=== PATIENT | female | born 1935 | race Caucasian/White ===

== ENCOUNTER 2022-02-21 21:09 | Inpatient (IN) | payer BC ==
[~2022-02-21] VITALS: Ht 165.1 cm; Wt 63.5 kg
[2022-02-21] MEDS ORDERED: CALC500T52 PO (21:57)
[2022-02-21] MEDS ORDERED: BISA10SU61 RC (21:57)
[2022-02-21] MEDS ORDERED: HYDR-3972 PO (21:57)
[2022-02-21] MEDS ORDERED: CHOL10005 PO (21:57)
[2022-02-21] MEDS ORDERED: PREG100C PO (21:57)
[2022-02-21] MEDS ORDERED: MAGN400O6 PO (21:57)
[2022-02-21] MEDS ORDERED: ATOR10TA PO (21:57)
[2022-02-21] MEDS ORDERED: DOCU100C36 PO (21:57)
[2022-02-21] MEDS ORDERED: APIX2.5T PO (21:57)
[2022-02-21] MEDS ORDERED: ASCO-375 PO (21:57)
[2022-02-21] MEDS ORDERED: MULT-1045 PO (21:57)
[2022-02-21] MEDS ORDERED: VIT1CAPS9 PO (21:57)
[2022-02-21] MEDS ORDERED: DULO60CA45 PO (21:57)
[2022-02-21] MEDS ORDERED: ACET-2154 PO (21:57)
[2022-02-21] MEDS ORDERED: FERR325T28 PO (21:57)
[2022-02-21] MEDS ORDERED: DIGO125T PO (21:57)
[2022-02-21] MEDS ORDERED: CRAN400T3 PO (21:57)
[2022-02-21] MEDS ORDERED: PANT40TA49 PO (21:57)
[2022-02-21] MEDS ORDERED: LEVO25TA9 PO (21:57)
[2022-02-21] MEDS ORDERED: PREG200C PO (21:57)
[2022-02-21 22:06] LABS: *BILIRUBIN,URIN NEGATIVE (NEGATIVE); *CLARITY,URINE CLEAR (CLEAR); *COLOR,URINE YELLOW (YELLOW); *KETONES,URINE NEGATIVE (NEGATIVE); *UROBILINOGEN,URINE 0.2 E.U./dl (NORMAL); LEUKOCYTE ESTERASE ,URINE NEGATIVE (NEGATIVE); NITRITE, URINE NEGATIVE (NEGATIVE); PH,URINE 5.5 (5.0-8.0); UGLUCOSE NEGATIVE (NEGATIVE)
[2022-02-21 22:07] LABS: *BLOOD, URINE NEGATIVE (NEGATIVE)
[2022-02-21 23:04] LABS: HEMATOCRIT 21.5 % (31.2-41.9); MEAN CORPUSCULAR HEMOGLOBIN 27.2 uug (24.7-32.8); MEAN CORPUSCULAR VOLUME 86.3 fL (75.5-95.3); PLATELET COUNT (AUTO) 405 K/uL (179-408)
[2022-02-21 23:14] LABS: CARBON DIOXIDE 32 mmol/L (21-32); CHLORIDE 106 mmol/L (98-107); CREATININE 0.8 mg/dL (0.6-1.3); GLUCOSE 192 mg/dL (74-106); POTASSIUM 3.4 mmol/L (3.5-5.1); UREA NITROGEN, BLOOD 29 mg/dL (7-18)
[2022-02-21 23:23] LABS: ALANINE AMINOTRANSFERASE 17 U/L (14-59); ALKALINE PHOSPHATASE 172 U/L (50-136); ASPARTATE AMINOTRANSFERASE 13 U/L (15-37); BILIRUBIN,DIRECT 0.2 mg/dL (0.0-0.2); BILIRUBIN,TOTAL 0.3 mg/dL (0.2-1.0); LIPASE 80 U/L (73-393); TOTAL PROTEIN, SERUM 5.8 g/dL (6.4-8.2)
[2022-02-21] MEDS ORDERED: SWABABLE VALVE TRANSFER SET EA MC ONE (23:50)
[2022-02-21] MEDS ORDERED: IV NORMAL SALINE 250 ML IV ONE (23:50)
[2022-02-21] MEDS ORDERED: IOHEXOL 300MG/ML 100 ML INFUS..BTL ONE (23:50)
[2022-02-22] MEDS ORDERED: METRONIDAZOLE 500 MG/NS 100 ML PIGGYBACK IV ONE (00:45)
[2022-02-22] MEDS ORDERED: PIPERACILLIN SODIUM/TAZOBACTAM 3.375 G in IV DEXTROSE 5% 50 ML IV ONE (00:45)
[2022-02-22] MEDS ORDERED: VANCOMYCIN 1G/D5W 200 ML PIGGYBACK IV ONE (00:45)
[2022-02-22] MEDS ORDERED: PIPERACILLIN/TAZOBACTAM/D5W 50 ML IV ONE (01:45)
[2022-02-22] MEDS ORDERED: VANCOMYCIN IV 200 ML ONE (01:45)
[2022-02-22] MEDS ORDERED: METRONIDAZOLE 500 MG/NS 100ML 100 ML IV ONE (01:46)
--- NOTE | 2022-02-22 02:30 | NUR ---
Daughter is at bedside with patient
[2022-02-22] MEDS ORDERED: HYDROCODONE/APAP 5-325MG TABLET PO PRN ×2 (02:45→09:00)
[2022-02-22] MEDS ORDERED: MAGNESIUM HYDROXIDE 30 ML LIQUID UDC PO PRN ×2 (02:45→09:00)
[2022-02-22] MEDS ORDERED: MORPHINE SULFATE 2 MG/1 ML DISP.SYRIN IV PRN (02:45)
[2022-02-22] MEDS ORDERED: ONDANSETRON 4 MG/2 ML VIAL IV PRN (02:45)
[2022-02-22] MEDS ORDERED: REMEDY ESSENTIAL ZINC PASTE 113 GM TP PRN (02:45)
--- NOTE | 2022-02-22 04:10 | NUR ---
Called third floor spoke to Afshan Charge nurse. Got room number placement. Stated patient will be placed in room #310.
--- NOTE | 2022-02-22 04:58 | NUR ---
Called [facility] for panel call.
[2022-02-22] MEDS ORDERED: MEROPENEM 1 G in IV NORMAL SALINE 100 ML IV ONE (05:00)
--- NOTE | 2022-02-22 06:36 | NUR ---
transferred pt. to tele dept. VSS at this time.
[2022-02-22] MEDS ORDERED: Medication Not On Formulary EA (Cholecalciferol (Vitamin D3) (Vitamin D3) 1 CAP) PO SCH (09:00)
[2022-02-22] MEDS ORDERED: PANTOPRAZOLE SODIUM 40 MG TABLET.DR PO SCH (09:00)
[2022-02-22] MEDS ORDERED: Medication Not On Formulary EA (Pregabalin (Lyrica) 200 MG) PO SCH (09:00)
[2022-02-22] MEDS ORDERED: ACETAMINOPHEN 325 MG TABLET-SA PATIENTS-PAIN ONLY PO PRN (09:00)
[2022-02-22] MEDS ORDERED: BISACODYL 10 MG SUPP.RECT RC PRN (09:00)
[2022-02-22] MEDS ORDERED: DIGOXIN 125 MCG TABLET PO ONE (09:30)
[2022-02-22] MEDS: DULOXETINE 60 MG CAPSULE.DR PO SCH (10:06)
[2022-02-22] MEDS: LEVOTHYROXINE SODIUM 25 MCG TABLET PO SCH (10:06)
[2022-02-22] MEDS: FERROUS SULFATE 325 MG TABEC PO SCH (10:06)
[2022-02-22] MEDS: DOCUSATE SODIUM 100 MG CAPSULE PO SCH (10:07)
[2022-02-22] MEDS: PANTOPRAZOLE SODIUM 40 MG TABLET.DR PO SCH (10:07)
[2022-02-22] MEDS: MEROPENEM 1 G in IV NORMAL SALINE 100 ML IV SCH ×2 (10:07→17:37)
[2022-02-22 11:50] VITALS: BP 126/52
[2022-02-22 13:10] LABS: HEMATOCRIT 25.9 % (31.2-41.9); MEAN CORPUSCULAR HEMOGLOBIN 27.6 uug (24.7-32.8); MEAN CORPUSCULAR VOLUME 87.2 fL (75.5-95.3); PLATELET COUNT (AUTO) 318 K/uL (179-408)
[2022-02-22] MEDS ORDERED: PROT30LI PO (14:26)
[2022-02-22] MEDS ORDERED: SODI100010 PO (14:26)
[2022-02-22 15:31] LABS: THYROID STIMULATING HORMONE 3.525 mIU/mL (0.358-3.740)
[2022-02-22 16:10] VITALS: BP 130/54
[2022-02-22] MEDS: IV NS 1000 ML 1,000 ML IV PRN (19:00)
[2022-02-22 20:00] VITALS: BP 109/49
[2022-02-22] MEDS: PREGABALIN 100 MG CAPSULE PO SCH (21:09)
[2022-02-22] MEDS: ACETAMINOPHEN 325 MG TABLET PO PRN (21:10)
[2022-02-23] MEDS: MEROPENEM 1 G in IV NORMAL SALINE 100 ML IV SCH ×3 (00:47→17:36)
--- NOTE | 2022-02-23 00:52 | NUR ---
Patient down grade from telemetry td to telemetry, per Len Byrne.
[2022-02-23] MEDS: VANCOMYCIN IV 1,000 MG in IV DEXTROSE 5% 250 ML IV SCH (02:54)
[2022-02-23 04:00] VITALS: BP 96/44
[2022-02-23] MEDS: PANTOPRAZOLE SODIUM 40 MG TABLET.DR PO SCH (05:55)
[2022-02-23] MEDS: LEVOTHYROXINE SODIUM 25 MCG TABLET PO SCH (05:56)
[2022-02-23 07:17] LABS: HEMATOCRIT 23.8 % (31.2-41.9); MEAN CORPUSCULAR HEMOGLOBIN 27.9 uug (24.7-32.8); MEAN CORPUSCULAR VOLUME 87.4 fL (75.5-95.3); PLATELET COUNT (AUTO) 305 K/uL (179-408)
[2022-02-23 07:18] LABS: BILIRUBIN,TOTAL 0.4 mg/dL (0.2-1.0); CREATININE 0.7 mg/dL (0.6-1.3); MAGNESIUM 1.5 mg/dL (1.8-2.4); PHOSPHOROUS 3.2 mg/dL (2.5-4.9); TOTAL PROTEIN, SERUM 5.2 g/dL (6.4-8.2)
[2022-02-23 09:06] LABS: A/G RATIO 0.3 (0.7-1.7); ALBUMIN 1.1 g/dL (2.9-4.4); ALPHA-1-GLOBULIN 0.5 g/dL (0.0-0.4); ALPHA-2-GLOBULIN 1.1 g/dL (0.4-1.0); BETA GLOBULIN 0.6 g/dL (0.7-1.3); GAMMA GLOBULIN 1.3 g/dL (0.4-1.8); GLOBULIN, TOTAL 3.5 g/dL (2.2-3.9); M-SPIKE 0.3 g/dL (Not Observed)
[2022-02-23] MEDS: FERROUS SULFATE 325 MG TABEC PO SCH (09:26)
[2022-02-23] MEDS: DOCUSATE SODIUM 100 MG CAPSULE PO SCH (09:26)
[2022-02-23] MEDS: DULOXETINE 60 MG CAPSULE.DR PO SCH (09:26)
[2022-02-23] MEDS: DIGOXIN 125 MCG TABLET PO SCH (09:27)
[2022-02-23] MEDS: CHOLECALCIFEROL 1,000 UNIT TABLET PO SCH (09:27)
[2022-02-23] MEDS: PREGABALIN 100 MG CAPSULE PO SCH ×2 (09:28→21:28)
[2022-02-23] MEDS ORDERED: POTASSIUM CHLORIDE 20 MEQ TAB.PRT.SR PO ONE (11:00)
[2022-02-23 11:30] VITALS: BP 110/42
[2022-02-23] MEDS: MAGNESIUM SULFATE/D5W 100 ML IV SCH ×2 (13:21→13:28)
[2022-02-23 16:14] VITALS: BP 113/48
[2022-02-23 20:45] VITALS: BP 100/38
[2022-02-24 00:35] VITALS: BP 95/38
[2022-02-24] MEDS: MEROPENEM 1 G in IV NORMAL SALINE 100 ML IV SCH ×3 (01:23→17:05)
[2022-02-24] MEDS: VANCOMYCIN IV 1,000 MG in IV DEXTROSE 5% 250 ML IV SCH (01:28)
[2022-02-24] MEDS: PANTOPRAZOLE SODIUM 40 MG TABLET.DR PO SCH (05:45)
[2022-02-24] MEDS: LEVOTHYROXINE SODIUM 25 MCG TABLET PO SCH (05:45)
[2022-02-24 05:49] VITALS: BP 91/40
[2022-02-24 07:54] LABS: CREATININE 0.7 mg/dL (0.6-1.3); MAGNESIUM 1.8 mg/dL (1.8-2.4); POTASSIUM 3.2 mmol/L (3.5-5.1)
[2022-02-24 08:00] VITALS: BP 117/66
[2022-02-24] MEDS: DULOXETINE 60 MG CAPSULE.DR PO SCH (10:14)
[2022-02-24] MEDS: PREGABALIN 100 MG CAPSULE PO SCH ×2 (10:14→20:54)
[2022-02-24] MEDS: DOCUSATE SODIUM 100 MG CAPSULE PO SCH (10:14)
[2022-02-24] MEDS: DIGOXIN 125 MCG TABLET PO SCH (10:16)
[2022-02-24] MEDS: CHOLECALCIFEROL 1,000 UNIT TABLET PO SCH (10:16)
[2022-02-24] MEDS ORDERED: POTASSIUM CHLORIDE 20 MEQ TAB.PRT.SR PO SCH (10:45)
[2022-02-24 12:00] VITALS: BP 111/47
[2022-02-24] MEDS: GLUCERNA SHAKE 237 ML CAN PO SCH ×2 (12:00→17:05)
[2022-02-24] MEDS: POTASSIUM CHLORIDE 20 MEQ TAB.PRT.SR PO SCH (13:00)
[2022-02-24 16:00] VITALS: BP 107/49
[2022-02-24] MEDS: ACETAMINOPHEN 325 MG TABLET PO PRN (17:05)
[2022-02-24 17:30] LABS: HEMATOCRIT 23.5 % (31.2-41.9); MEAN CORPUSCULAR HEMOGLOBIN 27.5 uug (24.7-32.8); MEAN CORPUSCULAR VOLUME 86.4 fL (75.5-95.3); PLATELET COUNT (AUTO) 309 K/uL (179-408)
[2022-02-25] VITALS (11 sets, daily range): BP systolic 106–130; BP diastolic 44–86
[2022-02-25] MEDS: MEROPENEM 1 G in IV NORMAL SALINE 100 ML IV SCH ×4 (01:37→23:48)
[2022-02-25] MEDS: LEVOTHYROXINE SODIUM 25 MCG TABLET PO SCH (05:33)
[2022-02-25] MEDS: VANCOMYCIN IV 1,000 MG in IV DEXTROSE 5% 250 ML IV SCH (05:33)
[2022-02-25] MEDS: PANTOPRAZOLE SODIUM 40 MG TABLET.DR PO SCH (05:34)
[2022-02-25 06:28] LABS: ABG BASE EXCESS 1.8 mmol/L; ABG HCO3 25.1 mmol/L; ABG PCO2 33.4 mmHg (35.0-45.0); ABG PH 7.493 (7.350-7.450); ABG PO2 89.1 mmHg (75.0-100.0); ABG SITE LEFT RADIAL; ABG TOTAL HEMOGLOBIN 7.8 G/dL (12.0-16.0); COHb 0.1 % (0.5-1.5); MetHb 0.4 % (0.0-1.5); O2Hb 96.5 % (94.0-97.0); VENT MODE Nasal Cannula
[2022-02-25 08:15] LABS: HEMATOCRIT 21.8 % (31.2-41.9); MEAN CORPUSCULAR HEMOGLOBIN 27.9 uug (24.7-32.8); MEAN CORPUSCULAR VOLUME 87.5 fL (75.5-95.3); PLATELET COUNT (AUTO) 263 K/uL (179-408)
[2022-02-25 08:30] LABS: BILIRUBIN,TOTAL 0.4 mg/dL (0.2-1.0); CREATININE 0.6 mg/dL (0.6-1.3); MAGNESIUM 1.8 mg/dL (1.8-2.4); PHOSPHOROUS 2.6 mg/dL (2.5-4.9); POTASSIUM 3.9 mmol/L (3.5-5.1)
[2022-02-25] MEDS: GLUCERNA SHAKE 237 ML CAN PO SCH ×3 (09:22→16:56)
[2022-02-25] MEDS: CHOLECALCIFEROL 1,000 UNIT TABLET PO SCH (09:24)
[2022-02-25] MEDS: DOCUSATE SODIUM 100 MG CAPSULE PO SCH (09:24)
[2022-02-25] MEDS: DIGOXIN 125 MCG TABLET PO SCH (09:24)
[2022-02-25] MEDS: DULOXETINE 60 MG CAPSULE.DR PO SCH (09:24)
[2022-02-25] MEDS: POTASSIUM CHLORIDE 20 MEQ TAB.PRT.SR PO SCH (09:35)
[2022-02-25] MEDS: PREGABALIN 100 MG CAPSULE PO SCH ×2 (09:35→20:37)
[2022-02-25] MEDS ORDERED: ALBUMIN HUMAN 25% 100 ML IV ONE ×2 (12:30→12:45)
[2022-02-25] MEDS ORDERED: FUROSEMIDE 20 MG/2 ML VIAL IV ONE ×2 (12:45→14:30)
[2022-02-25 15:35] LABS: EOSINOPHILS % (MANUAL) 1 % (0-8); LYMPHOCYTES % (MANUAL) 8 % (20-40); MONOCYTES % (MANUAL) 3 % (2-10); NEUTROPHILS % (MANUAL) 88 % (42-75)
[2022-02-25] MEDS: ACETAMINOPHEN 325 MG TABLET PO PRN (18:39)
[2022-02-25] MEDS: ACIDOPHILUS/BULGARICUS CHEW TAB PO SCH (20:36)
[2022-02-25 20:58] LABS: *BILIRUBIN,URIN NEGATIVE (NEGATIVE); *CLARITY,URINE CLEAR (CLEAR); *COLOR,URINE YELLOW (YELLOW); *KETONES,URINE NEGATIVE (NEGATIVE); *UROBILINOGEN,URINE 0.2 E.U./dl (NORMAL); LEUKOCYTE ESTERASE ,URINE NEGATIVE (NEGATIVE); NITRITE, URINE NEGATIVE (NEGATIVE); PH,URINE 5.5 (5.0-8.0); UGLUCOSE NEGATIVE (NEGATIVE)
[2022-02-25 21:09] LABS: *BLOOD, URINE TRACE (NEGATIVE)
[2022-02-25 21:16] LABS: BACTERIA,URINE FEW /HPF (NONE SEEN); SQUAMOUS EPITHELIAL CELL,UR FEW /HPF (NONE SEEN); YEAST,URINE MANY /HPF (NONE SEEN)
[2022-02-26 00:04] VITALS: BP 109/45
[2022-02-26] MEDS: VANCOMYCIN IV 1,000 MG in IV DEXTROSE 5% 250 ML IV SCH (02:00)
[2022-02-26 04:06] VITALS: BP 102/60
[2022-02-26] MEDS: PANTOPRAZOLE SODIUM 40 MG TABLET.DR PO SCH (05:45)
[2022-02-26] MEDS: LEVOTHYROXINE SODIUM 25 MCG TABLET PO SCH (05:45)
[2022-02-26 07:19] LABS: HEMATOCRIT 26.4 % (31.2-41.9); MEAN CORPUSCULAR HEMOGLOBIN 28.4 uug (24.7-32.8); MEAN CORPUSCULAR VOLUME 87.5 fL (75.5-95.3); PLATELET COUNT (AUTO) 227 K/uL (179-408)
[2022-02-26 07:35] LABS: BILIRUBIN,TOTAL 0.5 mg/dL (0.2-1.0); CREATININE 0.6 mg/dL (0.6-1.3); DIGOXIN 1.3 ng/mL (0.9-2.0); MAGNESIUM 1.6 mg/dL (1.8-2.4); PHOSPHOROUS 2.7 mg/dL (2.5-4.9); POTASSIUM 3.6 mmol/L (3.5-5.1)
[2022-02-26] MEDS: FUROSEMIDE 20 MG/2 ML VIAL IV SCH (08:35)
[2022-02-26] MEDS: MEROPENEM 1 G in IV NORMAL SALINE 100 ML IV SCH ×2 (08:35→15:03)
[2022-02-26] MEDS: DULOXETINE 60 MG CAPSULE.DR PO SCH (08:36)
[2022-02-26] MEDS: DOCUSATE SODIUM 100 MG CAPSULE PO SCH (08:36)
[2022-02-26] MEDS: ACIDOPHILUS/BULGARICUS CHEW TAB PO SCH ×2 (08:36→20:39)
[2022-02-26] MEDS: CHOLECALCIFEROL 1,000 UNIT TABLET PO SCH (08:36)
[2022-02-26] MEDS: POTASSIUM CHLORIDE 20 MEQ TAB.PRT.SR PO SCH (08:36)
[2022-02-26] MEDS: DIGOXIN 125 MCG TABLET PO SCH (08:37)
[2022-02-26] MEDS: PREGABALIN 100 MG CAPSULE PO SCH ×2 (08:37→20:40)
[2022-02-26] MEDS: GLUCERNA SHAKE 237 ML CAN PO SCH ×3 (08:38→17:10)
[2022-02-26] MEDS: FLUCONAZOLE 200 MG/NS 100ML IV 100 MG in PREMIXED 1 EACH IV SCH (10:07)
[2022-02-26 11:37] VITALS: BP 107/35
[2022-02-26] MEDS: IV NS 1000 ML 1,000 ML IV PRN (13:48)
[2022-02-26] MEDS: ACETAMINOPHEN 325 MG TABLET PO PRN (14:47)
[2022-02-26 15:41] VITALS: BP 117/48
--- NOTE | 2022-02-26 20:20 | NUR ---
Patient alert awake no sob no chest pain, sinus rhythm sinus tachy on tele, no complain of pain, with generalized edema noted, kept both arms elevated with pillow, cont to monitor.
[2022-02-26 21:02] VITALS: BP 107/41
[2022-02-26] MEDS ORDERED: CEFTRIAXONE /D5W 50ML IVPB **ER PYXIS IV ONE (23:34)
[2022-02-26] MEDS: CEFTRIAXONE 1 G in IV DEXTROSE 5% 50 ML IV SCH (23:50)
[2022-02-27 00:09] VITALS: BP 98/42
[2022-02-27 04:11] VITALS: BP 106/41
[2022-02-27] MEDS: METRONIDAZOLE 500 MG TABLET PO SCH ×3 (05:09→21:23)
[2022-02-27] MEDS: PANTOPRAZOLE SODIUM 40 MG TABLET.DR PO SCH (06:19)
[2022-02-27] MEDS: LEVOTHYROXINE SODIUM 25 MCG TABLET PO SCH (06:19)
--- NOTE | 2022-02-27 07:02 | NUR ---
Patient alert oriented, no sob no chest pain, sinus rhythm sinus tachy on tele, denies pain, still generalized edema noted, kept clean and dry and comfortable, seen by ID GRADUATE ASSISTANT ATHLETIC TRAINER with order, cont to monitor.
[2022-02-27 07:26] LABS: HEMATOCRIT 24.8 % (31.2-41.9); MEAN CORPUSCULAR HEMOGLOBIN 28.6 uug (24.7-32.8); MEAN CORPUSCULAR VOLUME 87.7 fL (75.5-95.3); PLATELET COUNT (AUTO) 205 K/uL (179-408)
[2022-02-27 07:54] LABS: BILIRUBIN,TOTAL 0.4 mg/dL (0.2-1.0); CREATININE 0.6 mg/dL (0.6-1.3); MAGNESIUM 1.5 mg/dL (1.8-2.4); PHOSPHOROUS 2.7 mg/dL (2.5-4.9); POTASSIUM 3.5 mmol/L (3.5-5.1); TOTAL PROTEIN, SERUM 4.8 g/dL (6.4-8.2)
[2022-02-27] MEDS: POTASSIUM CHLORIDE 20 MEQ TAB.PRT.SR PO SCH (09:40)
[2022-02-27] MEDS: ACIDOPHILUS/BULGARICUS CHEW TAB PO SCH ×2 (09:40→20:30)
[2022-02-27] MEDS: PREGABALIN 100 MG CAPSULE PO SCH ×2 (09:40→20:30)
[2022-02-27] MEDS: CHOLECALCIFEROL 1,000 UNIT TABLET PO SCH (09:40)
[2022-02-27] MEDS: DULOXETINE 60 MG CAPSULE.DR PO SCH (09:40)
[2022-02-27] MEDS: FUROSEMIDE 20 MG/2 ML VIAL IV SCH (09:40)
[2022-02-27] MEDS: DIGOXIN 125 MCG TABLET PO SCH (09:40)
[2022-02-27] MEDS: GLUCERNA SHAKE 237 ML CAN PO SCH ×3 (09:41→19:00)
[2022-02-27] MEDS: DOCUSATE SODIUM 100 MG CAPSULE PO SCH (09:41)
[2022-02-27] MEDS: FLUCONAZOLE 200 MG/NS 100ML IV 100 MG in PREMIXED 1 EACH IV SCH (09:45)
[2022-02-27 12:00] VITALS: BP 94/45
[2022-02-27 16:00] VITALS: BP 93/42
[2022-02-27] MEDS: MAGNESIUM SULFATE/D5W 100 ML IV SCH (19:00)
--- NOTE | 2022-02-27 19:51 | NUR ---
Patient has 2 bags of empty Magnesium IV bag noted at IV pole.
[2022-02-27 20:00] VITALS: BP 106/37
[2022-02-27] MEDS: ACETAMINOPHEN 325 MG TABLET PO PRN (20:30)
[2022-02-27] MEDS: IV NS 1000 ML 1,000 ML IV PRN (20:31)
--- NOTE | 2022-02-27 20:50 | NUR ---
Patient has elevated temp 100.4 , Janice Commercial Analyst was notified with order of blood culture x2, patient given tylenol 650mg po plus cooling measures, cont to monitor.
--- NOTE | 2022-02-27 22:15 | NUR ---
recheck temp 97.8 oral, no sob no chest pain, noted with moist cough, kept hob elevated cont to monitor.
[2022-02-28] VITALS: BP 94/43
[2022-02-28] MEDS: CEFTRIAXONE 1 G in IV DEXTROSE 5% 50 ML IV SCH ×2 (00:04→22:01)
[2022-02-28 04:00] VITALS: BP 100/44
[2022-02-28] MEDS: METRONIDAZOLE 500 MG TABLET PO SCH ×3 (05:05→21:23)
[2022-02-28] MEDS: PANTOPRAZOLE SODIUM 40 MG TABLET.DR PO SCH (06:01)
[2022-02-28] MEDS: LEVOTHYROXINE SODIUM 25 MCG TABLET PO SCH (06:01)
--- NOTE | 2022-02-28 07:31 | NUR ---
Patient awake alert no sob no chest pain, sinus tachy, no complain of pain, still has moist cough, afebrile,endorse to get ST eval, no sis of distress. cont to monitor.
[2022-02-28] MEDS: GLUCERNA SHAKE 237 ML CAN PO SCH ×3 (08:00→17:00)
[2022-02-28 08:03] LABS: HEMATOCRIT 26.6 % (31.2-41.9); MEAN CORPUSCULAR HEMOGLOBIN 28.2 uug (24.7-32.8); MEAN CORPUSCULAR VOLUME 87.7 fL (75.5-95.3); PLATELET COUNT (AUTO) 201 K/uL (179-408)
[2022-02-28] MEDS: DIGOXIN 125 MCG TABLET PO SCH (10:23)
[2022-02-28] MEDS: FUROSEMIDE 20 MG/2 ML VIAL IV SCH (10:23)
[2022-02-28] MEDS: DOCUSATE SODIUM 100 MG CAPSULE PO SCH (10:24)
[2022-02-28] MEDS: PREGABALIN 100 MG CAPSULE PO SCH ×2 (10:24→21:23)
[2022-02-28] MEDS: ACIDOPHILUS/BULGARICUS CHEW TAB PO SCH ×2 (10:24→21:24)
[2022-02-28] MEDS: IV NS 1000 ML 1,000 ML IV PRN (10:26)
[2022-02-28] MEDS: POTASSIUM CHLORIDE 20 MEQ TAB.PRT.SR PO SCH (10:26)
[2022-02-28] MEDS: FLUCONAZOLE 200 MG/NS 100ML IV 100 MG in PREMIXED 1 EACH IV SCH (10:27)
[2022-02-28] MEDS: CHOLECALCIFEROL 1,000 UNIT TABLET PO SCH (10:27)
[2022-02-28] MEDS: DULOXETINE 60 MG CAPSULE.DR PO SCH (10:27)
[2022-02-28 11:39] VITALS: BP 104/43
--- NOTE | 2022-02-28 16:11 | NUR ---
PT TOLERATES THICKENED LIQUIDS BETTER THAN REGULAR LIQUIDS
[2022-02-28 16:21] VITALS: BP 101/46
--- NOTE | 2022-02-28 18:51 | NUR ---
SPOKE WITH DR. AHMADI REGARDING CONCERNS OF PT ASPIRATING, PT IS WEAK, POOR PO INTAKE. SPEECH AND SWALLOW EVAL TO BE DONE.
--- NOTE | 2022-02-28 19:00 | NUR ---
RECEIVED REPORT FROM CARYN RYAN.
[2022-02-28 20:00] VITALS: BP 113/46
[2022-02-28] MEDS ORDERED: IV NORMAL SALINE 500 ML IV ONE ×2 (22:54→23:00)
--- NOTE | 2022-02-28 23:00 | NUR ---
PATIENT HR WAS 130, MORPHINE 2 MG WAS GIVEN IV AND ANG COPY WORKER MADE AWARE, NEW ORDER GIVEN TO GIVE NS 500 ML BOLUS, BOLUS GIVEN, HR 125 AT THIS TIME, WILL CONTINUE TO MONITOR.
[2022-03-01] VITALS: BP 115/51
--- NOTE | 2022-03-01 00:49 | NUR ---
RECEIVED REPORT FROM CARYN RYAN.
[2022-03-01 04:00] VITALS: BP 121/59
[2022-03-01] MEDS: METRONIDAZOLE 500 MG TABLET PO SCH ×4 (06:37→22:00)
[2022-03-01] MEDS: LEVOTHYROXINE SODIUM 25 MCG TABLET PO SCH (06:37)
[2022-03-01] MEDS: PANTOPRAZOLE SODIUM 40 MG TABLET.DR PO SCH (06:37)
--- NOTE | 2022-03-01 07:18 | NUR ---
REPORT GIVEN TO CARYN RYAN.
[2022-03-01] MEDS: GLUCERNA SHAKE 237 ML CAN PO SCH ×3 (08:00→17:21)
[2022-03-01] MEDS: FLUCONAZOLE 200 MG/NS 100ML IV 100 MG in PREMIXED 1 EACH IV SCH (09:15)
[2022-03-01] MEDS: IV NS 1000 ML 1,000 ML IV PRN ×2 (09:16→22:53)
[2022-03-01] MEDS: DOCUSATE SODIUM 100 MG CAPSULE PO SCH (09:19)
[2022-03-01] MEDS: POTASSIUM CHLORIDE 20 MEQ TAB.PRT.SR PO SCH (09:19)
[2022-03-01] MEDS: DULOXETINE 60 MG CAPSULE.DR PO SCH (09:19)
[2022-03-01] MEDS: ACIDOPHILUS/BULGARICUS CHEW TAB PO SCH ×3 (09:19→21:35)
[2022-03-01] MEDS: PREGABALIN 100 MG CAPSULE PO SCH ×3 (09:19→21:35)
[2022-03-01] MEDS: DIGOXIN 125 MCG TABLET PO SCH (09:19)
[2022-03-01] MEDS: CHOLECALCIFEROL 1,000 UNIT TABLET PO SCH (09:19)
[2022-03-01] MEDS: FUROSEMIDE 20 MG/2 ML VIAL IV SCH (09:20)
[2022-03-01 11:01] VITALS: BP 111/45
--- NOTE | 2022-03-01 11:12 | NUR ---
WOUND CARE CONSULT: PT SEEN FOR SKIN ASSESSMENT AND NOTED TO HAVE PROFOUND GENERALIZED EDEMA, LEFT HEEL BROWN DISCOLORATION/SCAR AND ABDOMINAL SCARRING, PRESENT ON ADMISSION. RT THIGH NOTED TO HAVE EDEMA WITH MOISTURE ASSOCIATED OPEN SKIN. RECOMMENDATIONS MADE FOR SKIN PROTECTION. DISCUSSED WITH NURSING STAFF. DOCUMENTATION FROM SENDING FACILITY INDICATES PRESSURE ULCER TO LEFT HEEL. FIRST STEP LOW AIRLOSS MATTRESS ORDERED. MD IN AGREEMENT WITH PLAN OF CARE.
[2022-03-01 13:06] LABS: BETA-2 MICROGLOBULIN, SERUM 4.9 mg/L (0.6-2.4)
--- NOTE | 2022-03-01 13:28 | NUR ---
spoke to Dr. Lopes regarding pts HR sustained 120's - 130's 500 cc bolus ordered pain medication to be given.
[2022-03-01] MEDS ORDERED: IV NORMAL SALINE 500 ML IV ONE (13:30)
[2022-03-01 15:27] VITALS: BP 114/38
[2022-03-01 15:51] VITALS: BP 114/38
[2022-03-01 20:00] VITALS: BP 106/32
--- NOTE | 2022-03-01 22:00 | NUR ---
Pt is lethargic. Unable to administer PO meds: Flagyl , Floranex, Lyrica.
--- NOTE | 2022-03-01 22:15 | NUR ---
Heart rate is sustaining at 150-156. Morphine given as ordered. Dr. Lopes is aware. Received order to change Morphine to Dilaudid.
[2022-03-01] MEDS: CEFTRIAXONE 1 G in IV DEXTROSE 5% 50 ML IV SCH (22:52)
--- NOTE | 2022-03-01 23:30 | NUR ---
Blood culture result received. made aware. Received order for Vancomycin.
[2022-03-01] MEDS: HYDROMORPHONE 1 MG/1 ML DISP.SYRIN IV PRN (23:36)
[2022-03-02] VITALS: BP_SYST 112; BP_SYST 131; BP_DIAS 47; BP_DIAS 54
[2022-03-02] MEDS ORDERED: VANCOMYCIN IV 1,000 MG in IV DEXTROSE 5% 250 ML IV SCH ×2
[2022-03-02] MEDS ORDERED: VANCOMYCIN IV 200 ML ONE (00:13)
[2022-03-02 02:16] LABS: HEMATOCRIT 22.4 % (31.2-41.9); MEAN CORPUSCULAR HEMOGLOBIN 28.8 uug (24.7-32.8); MEAN CORPUSCULAR VOLUME 88.1 fL (75.5-95.3); PLATELET COUNT (AUTO) 164 K/uL (179-408)
[2022-03-02 02:24] LABS: CREATININE 0.6 mg/dL (0.6-1.3); MAGNESIUM 1.6 mg/dL (1.8-2.4); PHOSPHOROUS 3.5 mg/dL (2.5-4.9); POTASSIUM 3.7 mmol/L (3.5-5.1)
--- NOTE | 2022-03-02 02:30 | NUR ---
Hgb 7.3. Gisel RESEARCH ANTHROPOLOGIST notified. VS 93/45, 140, RR 14, 98.7, O2 at 3LPM sating at 93%. Received order for ABG.
[2022-03-02 03:27] LABS: ABG BASE EXCESS 3.4 mmol/L; ABG HCO3 27.6 mmol/L; ABG PCO2 40.6 mmHg (35.0-45.0); ABG PH 7.451 (7.350-7.450); ABG PO2 64.7 mmHg (75.0-100.0); ABG SITE LEFT RADIAL; ABG TOTAL HEMOGLOBIN 9.3 G/dL (12.0-16.0); COHb 0.3 % (0.5-1.5); MetHb 0.2 % (0.0-1.5); O2Hb 92.3 % (94.0-97.0); VENT MODE Nasal Cannula
--- NOTE | 2022-03-02 03:56 | NUR ---
Spoke to LY daughter Kalyani on the phone, requested for code status to be changed to DNR. 2 RNs verified. Gisel PEER COUNSELOR notified.
[2022-03-02] MEDS: METRONIDAZOLE 500 MG TABLET PO SCH ×3 (06:00→23:12)
[2022-03-02] MEDS: PANTOPRAZOLE SODIUM 40 MG TABLET.DR PO SCH (06:06)
[2022-03-02] MEDS: LEVOTHYROXINE SODIUM 25 MCG TABLET PO SCH (06:08)
[2022-03-02] MEDS: GLUCERNA SHAKE 237 ML CAN PO SCH ×3 (08:00→17:00)
[2022-03-02] MEDS: DULOXETINE 60 MG CAPSULE.DR PO SCH (09:00)
[2022-03-02] MEDS: PREGABALIN 100 MG CAPSULE PO SCH ×2 (09:00→20:23)
[2022-03-02] MEDS: DOCUSATE SODIUM 100 MG CAPSULE PO SCH (09:00)
[2022-03-02] MEDS: POTASSIUM CHLORIDE 20 MEQ TAB.PRT.SR PO SCH (09:00)
[2022-03-02] MEDS: ACIDOPHILUS/BULGARICUS CHEW TAB PO SCH ×2 (09:00→20:23)
[2022-03-02] MEDS: CHOLECALCIFEROL 1,000 UNIT TABLET PO SCH (09:00)
[2022-03-02] MEDS: FLUCONAZOLE 200 MG/NS 100ML IV 100 MG in PREMIXED 1 EACH IV SCH (09:12)
[2022-03-02] MEDS: DIGOXIN 125 MCG TABLET PO SCH (09:15)
[2022-03-02] MEDS: FUROSEMIDE 20 MG/2 ML VIAL IV SCH (09:18)
[2022-03-02] MEDS: MAGNESIUM SULFATE/D5W 100 ML IV SCH ×2 (11:25→11:31)
[2022-03-02 11:52] VITALS: BP 111/50
[2022-03-02 12:06] LABS: *ALPHA-1-GLOBULIN, 24 5.4 % (.); *ALPHA-2-GLOBULIN, U24 23.9 % (.); *BETA GLOBULIN,24 19.1 % (.); *PEU ALBUMIN, 24 27.8 % (.); *PEUGAMMA GLOBULIN, 24 23.7 % (.); *PROTEIN, TOTAL, UR 24 HR 42.1 mg/dL (Not Estab.)
[2022-03-02 15:55] VITALS: BP 116/45
[2022-03-02] MEDS: IV NS 1000 ML 1,000 ML IV PRN (18:47)
[2022-03-02 20:00] VITALS: BP 106/34
[2022-03-02] MEDS: CEFTRIAXONE 1 G in IV DEXTROSE 5% 50 ML IV SCH (23:14)
[2022-03-03] VITALS: BP 111/34
[2022-03-03] MEDS: VANCOMYCIN IV 1,000 MG in IV DEXTROSE 5% 250 ML IV SCH (01:06)
[2022-03-03 04:00] VITALS: BP 125/85
[2022-03-03] MEDS: METRONIDAZOLE 500 MG TABLET PO SCH ×3 (06:24→21:00)
[2022-03-03] MEDS: LEVOTHYROXINE SODIUM 25 MCG TABLET PO SCH (06:25)
[2022-03-03] MEDS: PANTOPRAZOLE SODIUM 40 MG TABLET.DR PO SCH (06:25)
--- NOTE | 2022-03-03 06:50 | NUR ---
Slept intermittently. Pt is more awake. Pt was able to tolerate PO medications crushed with apple sauce. Aspiration precaution observed. No aspiration noted. Will endorse to incoming nurse.
[2022-03-03 07:45] LABS: CREATININE 0.6 mg/dL (0.6-1.3); MAGNESIUM 2.1 mg/dL (1.8-2.4)
[2022-03-03] MEDS: DULOXETINE 60 MG CAPSULE.DR PO SCH (09:15)
[2022-03-03] MEDS: POTASSIUM CHLORIDE 20 MEQ TAB.PRT.SR PO SCH (09:15)
[2022-03-03] MEDS: PREGABALIN 100 MG CAPSULE PO SCH ×2 (09:15→20:57)
[2022-03-03] MEDS: ACIDOPHILUS/BULGARICUS CHEW TAB PO SCH ×2 (09:15→20:57)
[2022-03-03] MEDS: CHOLECALCIFEROL 1,000 UNIT TABLET PO SCH (09:16)
[2022-03-03] MEDS: DIGOXIN 125 MCG TABLET PO SCH (09:16)
[2022-03-03] MEDS: GLUCERNA SHAKE 237 ML CAN PO SCH ×3 (09:17→17:28)
[2022-03-03] MEDS: FLUCONAZOLE 200 MG/NS 100ML IV 100 MG in PREMIXED 1 EACH IV SCH (09:17)
[2022-03-03] MEDS: FUROSEMIDE 20 MG/2 ML VIAL IV SCH (09:18)
[2022-03-03] MEDS: DOCUSATE SODIUM 100 MG CAPSULE PO SCH (09:18)
[2022-03-03 11:59] VITALS: BP 110/34
[2022-03-03] MEDS: POTASSIUM CHLORIDE 10 MEQ TAB.PRT.SR PO SCH ×2 (12:15→16:05)
[2022-03-03] MEDS: ACETAMINOPHEN 325 MG TABLET PO PRN (12:15)
[2022-03-03] MEDS: IV NS 1000 ML 1,000 ML IV PRN (12:33)
[2022-03-03 16:13] VITALS: BP 118/44
--- NOTE | 2022-03-03 19:35 | NUR ---
Patient asleep but arousable, no complain of pain, no s/s of sob/no s/s of chest pain, noted with moist cough, with generalized edema, cont on abx for infection, kept arms and leg elevated with pillow, kept comfortable, sinus rhythm sinus tachy, cont to monitor.
[2022-03-03 21:19] VITALS: BP 109/45
[2022-03-03] MEDS: CEFTRIAXONE 1 G in IV DEXTROSE 5% 50 ML IV SCH (23:56)
[2022-03-04 01:00] VITALS: BP 110/45
[2022-03-04] MEDS: VANCOMYCIN IV 1,000 MG in IV DEXTROSE 5% 250 ML IV SCH (02:01)
[2022-03-04] MEDS: HYDROMORPHONE 1 MG/1 ML DISP.SYRIN IV PRN (03:08)
--- NOTE | 2022-03-04 03:11 | NUR ---
Patient moaning, heart rate elevated, given Dilaudid 1mg via for comfort and pain, cont to monitor.
[2022-03-04] MEDS: PANTOPRAZOLE SODIUM 40 MG TABLET.DR PO SCH (06:24)
[2022-03-04] MEDS: LEVOTHYROXINE SODIUM 25 MCG TABLET PO SCH (06:24)
[2022-03-04] MEDS: METRONIDAZOLE 500 MG TABLET PO SCH ×2 (06:24→14:55)
[2022-03-04 06:37] VITALS: BP 105/45
--- NOTE | 2022-03-04 07:04 | NUR ---
Patient asleep but arousable, no s/s of pain nor discomfort at this time, still with moist cough, rendered good oral care, still with generalized edema, kept both arms elevated with pillow, rendered good pk care had small BM, sinus rythm sinus tachy on tele, kept clean dry and comfortable, cont to monitor.
[2022-03-04 07:44] LABS: CREATININE 0.6 mg/dL (0.6-1.3); POTASSIUM 3.9 mmol/L (3.5-5.1)
[2022-03-04 08:58] LABS: HEMATOCRIT 22.3 % (31.2-41.9); MEAN CORPUSCULAR HEMOGLOBIN 27.7 uug (24.7-32.8); MEAN CORPUSCULAR VOLUME 88.7 fL (75.5-95.3); PLATELET COUNT (AUTO) 158 K/uL (179-408)
--- NOTE | 2022-03-04 09:00 | NUR ---
TURNED AND REPOSITIONED Q2H GENERALISED EDEMA ALL NEEDS ANTICIPATED AND SATISFIED IVF ORDERED POOR ORAL INTAKE O2 IN PROGRESS WITH NO SOB AT THIS TIME WILL CONTINUE TO OBSERVE.
[2022-03-04] MEDS: FUROSEMIDE 20 MG/2 ML VIAL IV SCH (09:11)
[2022-03-04] MEDS: PREGABALIN 100 MG CAPSULE PO SCH (09:12)
[2022-03-04] MEDS: CHOLECALCIFEROL 1,000 UNIT TABLET PO SCH (09:12)
[2022-03-04] MEDS: DULOXETINE 60 MG CAPSULE.DR PO SCH (09:12)
[2022-03-04] MEDS: ACIDOPHILUS/BULGARICUS CHEW TAB PO SCH (09:12)
[2022-03-04] MEDS: POTASSIUM CHLORIDE 20 MEQ TAB.PRT.SR PO SCH (09:12)
[2022-03-04] MEDS: DOCUSATE SODIUM 100 MG CAPSULE PO SCH (09:13)
[2022-03-04] MEDS: FLUCONAZOLE 200 MG/NS 100ML IV 100 MG in PREMIXED 1 EACH IV SCH (09:14)
[2022-03-04] MEDS: DIGOXIN 125 MCG TABLET PO SCH (09:15)
[2022-03-04] MEDS: GLUCERNA SHAKE 237 ML CAN PO SCH ×3 (09:16→17:00)
--- NOTE | 2022-03-04 11:00 | NUR ---
PER THE SENIOR RISK ANALYST [facility] FOR HOSPICE HAS BEEN INITIATED AND SENT YESTERDAY.
[2022-03-04 12:00] VITALS: BP 99/39
[2022-03-04 16:36] VITALS: BP 106/48
--- NOTE | 2022-03-04 17:58 | NUR ---
[facility] HERE SEEN PATIENT WITH ORDERS PATIENT WILL BE DISCHARGED FROM [facility] AND WILL BE CONVERTED TO HOSPICE DR AHMADI NOTIFIED AND HE STATED WILL DO THE DISCHARGE.
[2022-03-04] MEDS ORDERED: LORAZEPAM 2 MG/1 ML VIAL IV PRN (18:15)
--- NOTE | 2022-03-04 18:18 | NUR ---
TELEMETRY REMOVED IVF STOPPED ORDERED AWAITING FOR DISCHARGE ORDER IN [facility] TO CONVERT PATIENT TO HOSPICE.
== END 2022-03-04 21:30 | disposition hospice, inpatient (51) | DRG 871 ==
LOC: ER 21:09 → TELE3 02-22 04:40 → TELE-TD3 02-23 00:38 → TELE3 02-23 00:50
PROVIDERS: ADMIT Internal Medicine; ATTEND Internal Medicine
PROC: 30233N1 Transfusion of Nonautologous Red Blood Cells into Peripheral Vein, Percutaneous Approach (ICD-10-PCS; principal; 2022-02-22)
PROC: 05H533Z Insertion of Infusion Device into Right Subclavian Vein, Percutaneous Approach (ICD-10-PCS; 2022-02-22)
PROC: B546ZZA Ultrasonography of Right Subclavian Vein, Guidance (ICD-10-PCS; 2022-02-22)
DX: A41.9 Sepsis, unspecified organism (principal); E43 Unspecified severe protein-calorie malnutrition; G92.8 Other toxic encephalopathy; J18.9 Pneumonia, unspecified organism; J96.01 Acute respiratory failure with hypoxia; J98.11 Atelectasis; D68.69 Other thrombophilia; B37.49 Other urogenital candidiasis; C49.4 Malignant neoplasm of connective and soft tissue of abdomen; J90 Pleural effusion, not elsewhere classified; R19.00 Intra-abdominal and pelvic swelling, mass and lump, unspecified site; D47.2 Monoclonal gammopathy; D64.9 Anemia, unspecified; D75.839 Thrombocytosis, unspecified; E03.9 Hypothyroidism, unspecified; E78.5 Hyperlipidemia, unspecified; E87.6 Hypokalemia; E88.09 Other disorders of plasma-protein metabolism, not elsewhere classified; G62.9 Polyneuropathy, unspecified; K56.41 Fecal impaction; Z20.822 Contact with and (suspected) exposure to COVID-19; K52.89 Other specified noninfective gastroenteritis and colitis; M19.90 Unspecified osteoarthritis, unspecified site; R73.9 Hyperglycemia, unspecified; Z74.09 Other reduced mobility; Z92.21 Personal history of antineoplastic chemotherapy; R62.7 Adult failure to thrive; Z68.23 Body mass index [BMI] 23.0-23.9, adult; N28.1 Cyst of kidney, acquired; Z98.1 Arthrodesis status; F32.A Depression, unspecified; F41.9 Anxiety disorder, unspecified; I11.0 Hypertensive heart disease with heart failure; I50.9 Heart failure, unspecified; G89.29 Other chronic pain; K74.60 Unspecified cirrhosis of liver; E80.6 Other disorders of bilirubin metabolism; Z96.642 Presence of left artificial hip joint
CPT/HCPCS: 36415; 36556; 36600; 70030-TC; 71045; 71250; 82746; 82784; 83550; 83605; 83690; 83735; 84100; 84155; 84165; 84443; 84484; 85025; 85730; 86334; 86850; 86900; 86901; 86920; 87040; 93005; 93307; A4663; A6209; A6213; G0378; J0696; J1170; J1450; J1940; J2185; J2270; J2543; J3370; J3475; J3490; J7040; J7050; P9016; P9047; Q9967

== ENCOUNTER 2022-03-04 21:56 | Inpatient (IN) | payer OTHER ==
[~2022-03-04 21:56] MED LIST: ACET-2154 PO; APIX2.5T PO; ASCO-375 PO; ATOR10TA PO; BISA10SU61 RC; CALC500T52 PO; CHOL10005 PO; CRAN400T3 PO; DIGO125T PO; DOCU100C36 PO; DULO60CA45 PO; FERR325T28 PO; HYDR-3972 PO; LEVO25TA9 PO; MAGN400O6 PO; MULT-1045 PO; PANT40TA49 PO; PREG100C PO; PREG200C PO; PROT30LI PO; SODI100010 PO; VIT1CAPS9 PO
[2022-03-04] MEDS: HYDROMORPHONE 1 MG/1 ML DISP.SYRIN IV PRN (23:58)
--- NOTE | 2022-03-04 23:58 | NUR ---
Patient is DNR/ comfort measures only patient who is receiving no artificial means of nutrition. On 4L NC prn for comfort care. No v/s, labs to be collected. Provided adequate oral care/hygiene and comfort measures. Dilaudid given 2358 d/t showing signs of pain by facial grimacing and moaning. Continue hospice care.
[2022-03-05] MEDS ORDERED: ONDANSETRON 4 MG/2 ML VIAL IV PRN (00:15)
[2022-03-05] MEDS: HYDROMORPHONE 1 MG/1 ML DISP.SYRIN IV PRN ×2 (07:52→21:02)
--- NOTE | 2022-03-05 07:55 | NUR ---
Pt had grimacing face and moaning. Pt unable to verbalized her pain. Dilaudid given for pain management. Noted JVD. Right upper midline x 2 ports flushing well. No s/s of infiltration noted. Anasarca swelling noted throughout her body. Applied KCI bed repositioned pt for comfort.
--- NOTE | 2022-03-05 13:00 | NUR ---
Pt remains comfortable. Encouraged family to talk with patient as sense of hearing is that last to go. PT is in no acute distress.
--- NOTE | 2022-03-05 15:00 | NUR ---
oral care given to patient then applied lip moisturizer on patient.
[2022-03-05] MEDS: LORAZEPAM 2 MG/1 ML VIAL IV PRN (18:08)
--- NOTE | 2022-03-05 18:13 | NUR ---
Pt restless twitching eyes gave ativan for restlessness.
--- NOTE | 2022-03-05 21:02 | NUR ---
Patient had facial grimacing and moaning. Dilaudid was administered. Patient has been changed and is comfortable.
[2022-03-06] MEDS: LORAZEPAM 2 MG/1 ML VIAL IV PRN ×2 (04:05→17:53)
--- NOTE | 2022-03-06 04:05 | NUR ---
Patient's showed signs of restlessness and eyes were twitching. Ativan was administered prn.
--- NOTE | 2022-03-06 05:45 | NUR ---
Provided oral care and hygiene care. Repositioned patient for comfort.
--- NOTE | 2022-03-06 07:34 | NUR ---
Oral care given to patient. Repositioned for comfort. Pt comfortable no grimacing noted.
[2022-03-06] MEDS: HYDROMORPHONE 1 MG/1 ML DISP.SYRIN IV PRN (08:23)
--- NOTE | 2022-03-06 17:54 | NUR ---
pt restless moving head side to side. Ativan given for restlessness. repositioned pt for comfort.
[2022-03-07] MEDS: HYDROMORPHONE 1 MG/1 ML DISP.SYRIN IV PRN ×2 (05:37→12:28)
--- NOTE | 2022-03-07 05:37 | NUR ---
Patient showed signs of facial grimacing. Dilaudid was administered. Oral care and hygiene was done at this time. Repositioning and as needed suctioning was done. Comfort measures maintained.
--- NOTE | 2022-03-07 18:15 | NUR ---
RECEIVED PATIENT ASLEEP WITH MINIMAL RESPONDS TO TACTILE STIMULI. DNR / COMFORT MEASURES OBSERVED. SEEN AND EXAMINED BY HOSPICE NURSE WITH VERBAL ORDER TO CONTINUE SAME TX PATIENT LOOKS COMFORTABLE. NOTED WITH FACIAL GRIMACING, PRN DILAUDID 1 MG GIVEN ORDERED FOR PAIN. PATIENT TURNED AND REPOSITIONED EVERY 2 HOURS. KEPT CLEANED AND COMFORTABLE, WILL CONTINUE TO MONITOR.
--- NOTE | 2022-03-07 21:01 | NUR ---
RECEIVED REPORT FROM ANTONIO RYAN.
--- NOTE | 2022-03-08 07:05 | NUR ---
REPORT GIVEN TO ARSH RYAN.
--- NOTE | 2022-03-08 07:15 | NUR ---
REPORT GIVEN TO HOMER RN.
[2022-03-08] MEDS: HYDROMORPHONE 1 MG/1 ML DISP.SYRIN IV PRN ×2 (10:27→16:48)
--- NOTE | 2022-03-08 12:26 | NUR ---
0730-REC'D PATIENT IN BED, ON OXYGEN ORDERED. NON VERBAL, APPEARS COMFORTABLE. COMFORT MEASURES IN PLACE, HOB ELEVATED. ROUTINE ROUNDS AND FREQUENT VISUAL CHECKS DONE. PATIENT UNDER HOSPICE CARE/NPO. 10:27-MEDICATED PATIENT PRN WITH DILAUDID DUE TO GRIMACES/BREATHING DIFFICULTY WITH HELP.
--- NOTE | 2022-03-08 15:30 | NUR ---
1300-Daughter visiting patient/at bedside. Patient appears comfortable, all comfort measures in place, oral care provided PRN. 1400-Patient with eyes closed, oxygen in prog. as ordered; mo moaning or facial grimaces noted. Safety measures in place. Monitoring closely. Daughter still at bedside visiting.;l 1500-Continue to make frequent rounds on patient, no s/s of physical/respiratory distress, daughter at bedside.
--- NOTE | 2022-03-08 16:51 | NUR ---
1640-SEEN BY STUNNER ANIMAL/D.O.N., PATIENT AT THIS TIME WITH RESPIRATION FAST AND SHALLOW. 1648-MEDICATED PRN WITH DILAUDID IMG IV ORAL CARE PROVIDED, REPOSITIONED FOR COMFORT AND PRESSURE RELIEF. CONTINUES ON OXYGEN VIA NC.
--- NOTE | 2022-03-08 18:39 | NUR ---
1840-PATIENT HAD A BM AND URINE WET DIAPER. CARE PROVIDED, TURNED AND REPOSITIONED TO PROMOTE COMFORT. PATIENT WITH LONG & SHALLOW RESPIRATION. NO MOANING OR FACIAL GRIMACES NOTED. LEFT PATIENT CLEAN AND COMFORTABLE.
--- NOTE | 2022-03-08 18:59 | NUR ---
1850PM-NOTED PATIENT PALE AND MOTIONLESS, BREATHING STOPPED, UNABLE TO PALPATE PULSE OR APPRECIATE VITAL SIGNS. CHARGE NURSE VERIFIED ABOVE SAID. 6:51PM-SPOKE TO DARVIN AT [facility] AND INFORMED, PER DARVIN SHE WILL CONTACT FAMILY AND GET BACK TO ME WITH MORTUARY INFORMACION. 6:58PM-Dr. EVIE PAUL WAS ALSO MADE AWARE. 7:03PM-SPOKE TO PATIENT'S DAUGHTER, CHIP AND GAVE HER THE SAD NEWS AND CONDOLENCES, PER TIM "THANK YOU SO MUCH, HOSPICE HAS REACH OUT TO ME WELL."
--- NOTE | 2022-03-08 19:20 | NUR ---
1914-SPOKE TO KRISTINA FROM [facility], PER KRISTINA PATIENT IS NOT ELIGIBLE FOR ORGAN DONOR DUE TO [place] HISTORY, REFERENCE NUMBER #[id number]. 7:25PM-SPOKE TO KRISTINA FROM [facility] @ PER KRISTINA ETA TO EMERGENCY MEDICINE SPECIALIST BODY IS BETWEEN 2.5-3.0 HRS FROM THIS CALL. ENDORSED APPROPRIATELY TO RELIEVING RN.
--- NOTE | 2022-03-08 19:44 | NUR ---
SPOKE TO ALMAZ FROM [facility].... AND NOT KRISTINA.
== END 2022-03-08 20:30 | DRG 951 ==
LOC: HOSPICE3 21:56
PROVIDERS: ADMIT Internal Medicine; ATTEND Internal Medicine
DX: Z51.5 Encounter for palliative care (principal); A41.9 Sepsis, unspecified organism; G92.8 Other toxic encephalopathy; J96.01 Acute respiratory failure with hypoxia; E43 Unspecified severe protein-calorie malnutrition; R65.20 Severe sepsis without septic shock; C49.9 Malignant neoplasm of connective and soft tissue, unspecified; D68.59 Other primary thrombophilia; K92.2 Gastrointestinal hemorrhage, unspecified; Z66 Do not resuscitate; K52.89 Other specified noninfective gastroenteritis and colitis; E87.6 Hypokalemia; F41.9 Anxiety disorder, unspecified; K56.41 Fecal impaction; D64.9 Anemia, unspecified; E03.9 Hypothyroidism, unspecified; M19.90 Unspecified osteoarthritis, unspecified site; G89.29 Other chronic pain; Z92.21 Personal history of antineoplastic chemotherapy; Z74.09 Other reduced mobility; I50.9 Heart failure, unspecified; R60.1 Generalized edema; Z87.81 Personal history of (healed) traumatic fracture; F32.A Depression, unspecified; D49.89 Neoplasm of unspecified behavior of other specified sites; Z98.1 Arthrodesis status; E11.42 Type 2 diabetes mellitus with diabetic polyneuropathy; E87.8 Other disorders of electrolyte and fluid balance, not elsewhere classified; E88.09 Other disorders of plasma-protein metabolism, not elsewhere classified
CPT/HCPCS: A6209; G0378; J1170; J2060